=== PATIENT | male | born 1980 | race Caucasian/White ===

== ENCOUNTER 2022-05-20 09:34 | Emergency (ER) | payer OTHER, SELFPAY ==
[2022-05-20 09:47] VITALS: BP 109/64; PULSE 69; RESP 15; TEMP 36.1; O2SAT 100; BMI 20.9
[2022-05-20 10:07] LABS: Add Manual Diff / Slide Review NO; Basophils Absolute Auto 0 /uL (0-100); Eosinophils Absolute Auto 100 /uL (0-450); Hematocrit 35.7 % (41-53); Hemoglobin 11.1 g/dL (13.5-17.5); Lymphocytes Absolute Auto 1500 /uL (1100-4500); Lymphocytes Percent Auto 34.1 % (25-40); Mean Corpuscular HGB Conc 31.2 % (30-36); Mean Corpuscular Hemoglobin 23.6 PG (26-34); Mean Corpuscular Volume 75.5 fL (80-100); Monocytes Absolute Auto 300 /uL (0-900); Monocytes Percent Auto 6.7 % (3-14); Neutrophils Absolute Auto 2500 /uL (1500-7000); Neutrophils Percent Auto 56.2 % (50-75); Platelet Count 250 X10^3/uL (150-400); Red Blood Cell Count 4.72 X10^6/uL (4.5-5.9); Red Cell Distribution Width 22.5 % (11.6-14.8); White Blood Cell Count 4.5 X10^3/uL (4.5-11.0)
[2022-05-20 10:16] LABS: Alanine Aminotransferase 44 IU/L (<50); Albumin 4.7 g/dL (3.5-5.0); Albumin Globulin Ratio 1.4 (1.0-2.8); Alkaline Phosphatase 93 U/L (38-126); Aspartate Aminotransferase 96 IU/L (17-59); BUN Creatinine Ratio 24.6 (6-22); Bilirubin Total 0.5 mg/dL (0.2-1.3); Blood Urea Nitrogen 17 mg/dL (9-20); Calcium 9.2 mg/dL (8.4-10.2); Carbon Dioxide 27 mmol/L (22-32); Chloride 103 mmol/L (98-107); Estimated Glomerular Filt Rate > 60 mL/min (>60); Globulin 3.4 g/dL (1.7-4.1); Glucose 126 mg/dL (70-100); HEMOLYSIS < 15 (0-50); Lipase 29 U/L (23-300); Potassium 4.2 mmol/L (3.4-5.1); Sodium 140 mmol/L (137-145); Total Protein 8.1 g/dL (6.3-8.2)
[2022-05-20] MEDS: SODIUM CHLORIDE 0.9% 1,000 ML 1000 ML IV (10:26)
[2022-05-20] MEDS: ONDANSETRON 4 MG/2 ML INJ IV (10:27)
[2022-05-20 10:31] LABS: Anisocytosis 1+; Microcytosis 1+
[2022-05-20 10:48] LABS: Appearance Urine UA CLEAR; Bilirubin Urine UA NEGATIVE (NEGATIVE); Color Urine UA YELLOW; Glucose Urine UA NEGATIVE (Negative); Ketones Urine UA NEGATIVE (NEGATIVE); Leukocyte Esterase Urine UA NEGATIVE (NEGATIVE); Nitrite Urine UA NEGATIVE (Negative); Occult Blood Urine UA NEGATIVE (Negative); Protein Urine UA NEGATIVE (Negative); Specific Gravity Urine UA 1.015 (1.000-1.035); Urobilinogen Urine UA 0.2 E.U./dL (0.2)
[2022-05-20 10:54] LABS: Bacteria Urine None Seen; Culture Indicated Urine Cult Not Indicated; RBC Urine None Seen (0-5/HPF); Urine Comments Microscopic Normal; WBC Urine None Seen (0-5/HPF)
--- NOTE | 2022-05-20 11:20 | ED_ITS ---
HPI - Abdominal Pain General Chief Complaint: Abdominal Pain Stated Complaint: Abd pain- recent pancreatitis issue Time Seen by Provider: 05/20/22 10:05 Source: patient Mode of arrival: Wheelchair History of Present Illness HPI narrative: Patient is a 42-year-old male with recent history of severe pancreatitis in October of 2021 in [place] he was told he had alcoholic pancreatitis also he had some sort of stone. He had very severe fear pancreatitis causing drains which he says were recently removed. 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 He is chronically on Augmentin. This morning he woke up severe epigastric pain and nausea. No chest pain or shortness of breath no fever. Patient states she has not had anything alcoholic to drink since October Related Data Previous Rx's Medication Instructions Recorded hydrocodone 5 mg-acetaminophen 325 1 tab PO Q6H PRN pain #10 tabs 05/20/22 mg tablet ondansetron 4 mg disintegrating 4 mg PO Q8H PRN nausea and 05/20/22 tablet vomiting #10 tabs Allergies Allergy/AdvReac Type Severity Reaction Status Date / Time No Known Drug Allergies Allergy Verified 05/20/22 09:47 Review of Systems Review of Systems Narrative: GENERAL: Denies chills, fatigue, malaise, fever, sweats, travel HEENT: Denies sinus pain, ear pain, sore throat, difficulty swallowing, neck pain RESPIRATORY: Denies dyspnea, cough, wheezing, hemoptysis, sputum. CARDIOVASCULAR: See HPI GASTROINTESTINAL: Denies nausea, vomiting, abdominal pain, diarrhea, constipation, melena. : Denies dysuria, frequency, incontinence, hematuria, urinary retention, flank pain. MUSCULOSKELETAL: Denies weakness, joint pain, or bony pain SKIN: No rash, no erythema, no pruritus NEUROLOGIC: Denies weakness, dizziness, headache, numbness, change in speech, confusion PSYCHIATRIC: No concerning psychosocial issues. 12 point review of systems is negative except for those stated above and HPI Patient History Social History Smoking Status: Unknown if ever smoked Smoking Status: Unknown if ever smoked alcohol intake frequency: holidays/special occasions only Substance Use Type: does not use Exam Initial Vital Signs Initial Vital Signs: Vital Signs Temperature 96.9 F L 05/20/22 09:47 Pulse Rate 69 05/20/22 09:47 Respiratory Rate 15 05/20/22 09:47 Blood Pressure 109/64 05/20/22 09:47 Pulse Oximetry 100 05/20/22 09:47 Oxygen Delivery Method 05/20/22 09:47 GENERAL: Alert and pleasant 42-year-old male and in no acute distress. HEENT: Head atraumatic,EOMI, pupils reactive, face symmetric, moist mucous membranes CARDIOVASCULAR: Regular rate and rhythm without murmurs, rubs or gallops. RESPIRATORY: Breath sounds equal bilaterally, no wheezes rales or rhonchi. ABDOMEN: Soft, minimal epigastric pain no guarding or rebound EXTREMITIES: Normal range of motion, no clubbing or edema. Neurovascularly intact NEUROLOGICAL: Alert and oriented x4.Normal gait and speech. SKIN: Warm, dry, no laceration, no petechiae, no rashes or lesions. Course Orders Ordered: ED Orders 05/20/22 10:43 Urinalysis and Microscopic Stat 05/20/22 11:32 CT abdomen pelvis w con Stat Discontinued Medications Sodium Chloride (Normal Saline 0.9%) 1,000 mls @ 1,000 mls/hr IV BOLUS ONE Stop: 05/20/22 11:04 Last Infusion: 05/20/22 11:29 Dose: 0 mls/hr Documented By: Admin: 05/20/22 10:26 Dose: 1,000 mls/hr Documented By: SUSANA Morphine Sulfate (Morphine 2 Mg/Ml Inj) 2 mg IV NOW ONE Stop: 05/20/22 11:33 Last Admin: 05/20/22 11:43 Dose: 2 mg Documented By: RADHA Ondansetron HCl (Ondansetron 4 Mg/2 Ml Inj) 4 mg IV NOW ONE Stop: 05/20/22 10:06 Last Admin: 05/20/22 10:27 Dose: 4 mg Documented By: SUSANA Vital Signs Vital signs: Vital Signs - 8 hr 05/20/22 12:15 05/20/22 13:55 Pulse Rate 66 55 L Respiratory Rate 16 18 Blood Pressure 115/53 L 108/56 L Pulse Oximetry 99 100 Oxygen Delivery Method Room Air Room Air MDM - Abdominal Pain Lab Data Result diagrams: 05/20/22 09:55 05/20/22 09:55 Labs: Lab Results 07/05/20/22 05/20/22 Range/Units 09:55 09:55 10:43 WBC 4.5 (4.5-11.0) X10^3/uL RBC 4.72 (4.5-5.9) X10^6/uL Hgb 11.1 L (13.5-17.5) g/dL Hct 35.7 L (41-53) % MCV 75.5 L (80-100) fL MCH 23.6 L (26-34) PG MCHC 31.2 (30-36) % RDW 22.5 H (11.6-14.8) % Plt Count 250 (150-400) X10^3/uL Neut % (Auto) 56.2 (50-75) % Lymph % (Auto) 34.1 (25-40) % [place] % (Auto) 6.7 (3-14) % Eos % (Auto) 2.0 (2-4) % Baso % (Auto) 1.0 (0-2) % Neut # (Auto) 2500 (4633-7955) /uL Lymph # (Auto) 1500 (7500-9346) /uL [place] # (Auto) 300 (0-900) /uL Eos # (Auto) 100 (0-450) /uL Baso # (Auto) 0 (0-100) /uL RBC Morphology See below Anisocytosis 1+ H Microcytosis 1+ H Sodium 140 (137-145) mmol/L Potassium 4.2 (3.4-5.1) mmol/L Chloride 103 (98-107) mmol/L Carbon Dioxide 27 (22-32) mmol/L BUN 17 (9-20) mg/dL Creatinine 0.69 (0.66-1.25) mg/dL Estimated GFR > 60 (>60) mL/min BUN/Creatinine Ratio 24.6 H (6-22) Glucose 126 H (70-100) mg/dL Calcium 9.2 (8.4-10.2) mg/dL Total Bilirubin 0.5 (0.2-1.3) mg/dL AST 96 H (17-59) IU/L ALT 44 (<50) IU/L Alkaline Phosphatase 93 (38-126) U/L Total Protein 8.1 (6.3-8.2) g/dL Albumin 4.7 (3.5-5.0) g/dL Globulin 3.4 (1.7-4.1) g/dL Albumin/Globulin Ratio 1.4 (1.0-2.8) Lipase 29 (23-300) U/L Urine Color Yellow Urine Appearance Clear Urine pH 7.0 (4.5-8.0) Ur Specific [place] 1.015 (1.000-1.035) Urine Protein Negative (Negative) Urine Glucose (UA) Negative (Negative) g/dL Urine Ketones Negative (NEGATIVE) Urine Occult Blood Negative (Negative) Urine Nitrate Negative (Negative) Urine Bilirubin Negative (NEGATIVE) Urine Urobilinogen 0.2 (0.2) E.U./dL Ur Leukocyte Esterase Negative (NEGATIVE) Urine RBC None seen (0-5/HPF) Urine WBC None seen (0-5/HPF) Urine Bacteria None seen (None) Ur Culture Indicated? Cult not indicated Micro UA Comment Microscopic normal Imaging Data CT scan - abdomen/pelvis: Radiologist's Impression: Signed Patient: Henry Tejada MR#: [id number] : 1980 Acct:[id number] Age/Sex: 42 / M Date of Service: 05/20/22 Loc: ED Accession Number: [id number] ?? Procedure: CT abdomen pelvis w con Ordering Provider: Molly Medina D.O. PROCEDURE:? CT ABDOMEN PELVIS W CON ? INDICATIONS:? Pancreatitis severe causing fistula all on the left side ? TECHNIQUE:? After the administration of intravenous contrast, axial sections acquired from the lung bases to the pubic symphysis.? Coronal and sagittal reformats were performed.? For radiation dose reduction, the following was used:? automated exposure control, adjustment of mA and/or kV according to patient size.? ? COMPARISON:? None. ? FINDINGS: ? Lower thorax:? Left lower lobe wedge-shaped consolidation or loculated pleural effusion noted in the costophrenic sulcus.? Heart size normal. ? Liver:? Hepatomegaly, 25 cm. Portal vein is patent, although small periportal ve nous collateral vessels noted. ? Biliary system:? No calcified cholelithiasis or pericholecystic inflammation.? No intra or extrahepatic bile duct dilatation. ? Pancreas:? Peripancreatic edema noted with probable pseudocyst in the tail the pancreas measuring 1.7 x 7-8 cm, containing extra luminal air.? No evidence of pneumoperitoneum. ? Spleen:? The spleen is enlarged at 15 cm.? No intrinsic mass lesion.? Perisplenic collateral vessels noted. ? Adrenals:? Normal morphology and density. ? Reproductive system:? Unremarkable as visualized. ? Urinary system:? Normal renal size and attenuation. No renal calculi, hydronephrosis, or solid mass present.? Urinary bladder unremarkable. ? Gastrointestinal system:? The bowel is unremarkable without evidence of bowel obstruction or inflammation. The stomach appears unremarkable.? Moderate fecal debris throughout the colon ? Appendix:? No findings to suggest acute appendicitis. ? Peritoneal spaces:? No mesenteric or retroperitoneal adenopathy.? As above.? No free fluid.? ? Vasculature:? The IVC, aorta and iliac vasculature are unremarkable. ? Abdominal wall:? Abdominal wall intact without evidence of ventral or inguinal hernias. ? Musculoskeletal:? Normal bone mineralization.? No acute fractures.? ? IMPRESSION: ? 1. Elongated encapsulated fluid in the left flank associated with the pancreatic tail probably reflects pseudocyst containing small focus of air.? No free pneumoperitoneum or bowel obstruction. ? 2. Peripancreatic edema and inflammatory change consistent with pancreatitis.? No evidence of pancreatic necrosis. ? 3. Hepatosplenomegaly with venous varices suggests portal venous hypertension ? Approved by: Skip Leary M.D. on 05/20/2022 at 11:52? [facility] Narrative Medical decision making narrative: The patient overall appears well. Blood work is reassuring. CT does confirm a large pseudocyst. Patient was actually scheduled for an outpatient CT in 2 days. He is given a copy of the result along with a disc so he can follow up in [place]. He is given pain and nausea medications as well. No need hospitalization at this time. Patient is overall feeling better. Discharge Plan Departure Patient Disposition: Home Clinical Impression: Chronic pancreatitis Instructions: DI for Pancreatitis Activity Restrictions/Additional Instructions: *You have been diagnosed with chronic pancreatitis *What to do: Blood work and CT scan of appears stable. Are your having so much pain today. *Continue to take medications as directed Hammond 1 tablet every 6 hours if needed for severe pain Zofran 4 mg every 8 hours if needed for nausea vomiting *Follow up with your primary care provider in 2-3 days or call [phone] *Return to ER if you should have increasing pain nausea vomiting fever, [or] any new, worsening or concerning symptoms CONTROLLED SUBSTANCE DISCHARGE (Narcotoic/benzodiazepine/Flexeril/Phenergan) 1. You have been prescribed narcotic medications, it does have acetaminophen/Tylenol/paracetamol in it, DO NOT TAKE MORE THAN 4,00mg in 24 hours of Tylenol. TRAMADOL DOES NOT CONTAIN TYLENOL 2. Please understand that we cannot provide further refills of narcotics, benzodiazepines or controlled substances through the ED and her pain management will need to be through your provider. 3. While on these medications you cannot drive or operate heavy machinery. 4. You cannot sign legal documents or perform any duties such as this. 5. As long as you're taking opiate pain medications he should also be taking a stool softener such as Colace, Dulcolax, MiraLAX or prune juice, to help avoid constipation. Prescriptions: New hydrocodone-acetaminophen 5-325 mg tablet 1 tab PO Q6H PRN (Reason: pain) Qty: 10 0RF ondansetron 4 mg tablet,disintegrating 4 mg PO Q8H PRN (Reason: nausea and vomiting) Qty: 10 0RF Visit Report Forms: Patient Portal/API
--- NOTE | 2022-05-20 11:32 | DI.CT.S_ITS ---
PROCEDURE: CT ABDOMEN PELVIS W CON INDICATIONS: Pancreatitis severe causing fistula all on the left side TECHNIQUE: After the administration of intravenous contrast, axial sections acquired from the lung bases to the pubic symphysis. Coronal and sagittal reformats were performed. For radiation dose reduction, the following was used: automated exposure control, adjustment of mA and/or kV according to patient size. COMPARISON: None. FINDINGS: Lower thorax: Left lower lobe wedge-shaped consolidation or loculated pleural effusion noted in the costophrenic sulcus. Heart size normal. Liver: Hepatomegaly, 25 cm. Portal vein is patent, although small periportal venous collateral vessels noted. Biliary system: No calcified cholelithiasis or pericholecystic inflammation. No intra or extrahepatic bile duct dilatation. Pancreas: Peripancreatic edema noted with probable pseudocyst in the tail the pancreas measuring 1.7 x 7-8 cm, containing extra luminal air. No evidence of pneumoperitoneum. Spleen: The spleen is enlarged at 15 cm. No intrinsic mass lesion. Perisplenic collateral vessels noted. Adrenals: Normal morphology and density. Reproductive system: Unremarkable as visualized. Urinary system: Normal renal size and attenuation. No renal calculi, hydronephrosis, or solid mass present. Urinary bladder unremarkable. Gastrointestinal system: The bowel is unremarkable without evidence of bowel obstruction or inflammation. The stomach appears unremarkable. Moderate fecal debris throughout the colon Appendix: No findings to suggest acute appendicitis. Peritoneal spaces: No mesenteric or retroperitoneal adenopathy. As above. No free fluid. Vasculature: The IVC, aorta and iliac vasculature are unremarkable. Abdominal wall: Abdominal wall intact without evidence of ventral or inguinal hernias. Musculoskeletal: Normal bone mineralization. No acute fractures. IMPRESSION: 1. Elongated encapsulated fluid in the left flank associated with the pancreatic tail probably reflects pseudocyst containing small focus of air. No free pneumoperitoneum or bowel obstruction. 2. Peripancreatic edema and inflammatory change consistent with pancreatitis. No evidence of pancreatic necrosis. 3. Hepatosplenomegaly with venous varices suggests portal venous hypertension Approved by: Skip Leary M.D. on 05/20/2022 at 11:52
[2022-05-20] MEDS: MORPHINE 2 MG/ML INJ IV (11:43)
[2022-05-20 12:15] VITALS: BP 115/53; PULSE 66; RESP 16; O2SAT 99
[2022-05-20 13:55] VITALS: BP 108/56; PULSE 55; RESP 18; O2SAT 100
== END 2022-05-20 14:25 | disposition home or self-care (01) ==
PROVIDERS: Emergency Provider Emergency Medicine
DX: K86.0 Alcohol-induced chronic pancreatitis (principal)
CPT/HCPCS: 36415; 74177; 80053; 81001; 83690; 85025; 93005; 96361; 96374; 96375; 99284; J2270; J2405; Q9967